=== PATIENT | female | born 1990 | race Caucasian/White ===

== ENCOUNTER 2018-08-19 03:06 | Emergency (ER) | payer OTHER ==
[2018-08-19] MEDS ORDERED: Methocarbamol 500 MG TAB PO SCH (03:30)
[2018-08-19 04:01] LABS: BHCG - Serum Negative (NEGATIVE); Pregs Control Background? CLEAR/WHITE (CLR/WHITE); Pregs Control Bar Appear? YES (CONTROL BAR)
[2018-08-19] MEDS ORDERED: Ketorolac Tromethamine 60 MG/2 ML VIAL ONE (04:23)
[2018-08-19] MEDS ORDERED: traMADol HCl 50 MG TAB ONE (05:18)
== END 2018-08-19 06:05 | disposition home or self-care (01) ==
LOC: ERS 03:06
DX: M54.12 Radiculopathy, cervical region (principal)
CPT/HCPCS: 36415; 84703; 96372; J1885